=== PATIENT | male | born 1955 | race Caucasian/White ===

== ENCOUNTER 2016-11-21 09:51 | Outpatient (CLI) | payer BC ==
[2016-11-21 10:43] LABS: Hemoglobin A1c 7.6 % (4.0-6.0)
[2016-11-21 10:58] LABS: ALT (SGPT) 32 U/L (0-55); AST (SGOT) 18 U/L (5-34); Albumin 4.4 g/dL (3.4-4.8); Alkaline Phosphatase 46 U/L (40-150); Anion Gap 18 mmol/L (10-20); BUN (Urea Nitrogen) 9 mg/dL (8.4-25.7); Bilirubin, Direct 0.2 mg/dL (0.1-0.3); Bilirubin, Total 0.4 mg/dL (0.2-1.2); Calc. Creatinine Clearance 0 mL/min (70-130); Calcium 9.7 mg/dL (7.8-10.44); Carbon Dioxide 28 mmol/L (23-31); Cardiac Risk 4.2 (Less than 4.5); Chloride 99 mmol/L (98-107); Cholesterol 199 mg/dL (< 200 Desired); Estimated GFR-MDRD Greater than 90; Glucose 199 mg/dL (80-115); HDL Cholesterol 47 mg/dL (>60 Neg Risk); LDL Cholesterol, Calculated 137 mg/dL; Potassium 4.8 mmol/L (3.5-5.1); Sodium 140 mmol/L (136-145); Triglycerides 74 mg/dL (Less than 150)
[2016-11-21 18:41] LABS: Creatinine, Urine 204.24 mg/dL (63-166)
[2016-11-21 19:04] LABS: Microalbumin Urine 1.5 mg/dL (0.5-50.0); Microalbumin/Creat Ratio 7.5 mg/g (Less than 30)
== END 2016-11-21 09:52 | disposition home or self-care (01) ==
LOC: MADLABBHPM 09:51
PROVIDERS: ATTEND Family Medicine
DX: E11.9 Type 2 diabetes mellitus without complications (principal)
CPT/HCPCS: 36415; 80048; 80061; 80076; 82043; 82570; 83036

== ENCOUNTER 2017-02-28 07:32 | Outpatient (CLI) | payer BC ==
[2017-02-28 10:06] LABS: ALT (SGPT) 33 U/L (0-55); AST (SGOT) 23 U/L (5-34); Albumin 4.4 g/dL (3.4-4.8); Alkaline Phosphatase 51 U/L (40-150); Anion Gap 18 mmol/L (10-20); BUN (Urea Nitrogen) 11 mg/dL (8.4-25.7); Bilirubin, Direct 0.1 mg/dL (0.1-0.3); Bilirubin, Total 0.3 mg/dL (0.2-1.2); Calc. Creatinine Clearance 0 mL/min (70-130); Calcium 9.5 mg/dL (7.8-10.44); Carbon Dioxide 24 mmol/L (23-31); Cardiac Risk 4.5 (Less than 4.5); Chloride 101 mmol/L (98-107); Cholesterol 177 mg/dL (< 200 Desired); Estimated GFR-MDRD 86; Glucose 152 mg/dL (80-115); HDL Cholesterol 39 mg/dL (>60 Neg Risk); LDL Cholesterol, Calculated 106 mg/dL; Potassium 4.2 mmol/L (3.5-5.1); Protein, Total 7.1 g/dL (5.8-8.1); Sodium 139 mmol/L (136-145); Triglycerides 160 mg/dL (Less than 150)
== END 2017-02-28 07:33 | disposition home or self-care (01) ==
LOC: MADLABBHPM 07:32
PROVIDERS: ATTEND Family Medicine
DX: E11.9 Type 2 diabetes mellitus without complications (principal)
CPT/HCPCS: 36415; 80048; 80061; 80076; 83036

== ENCOUNTER 2018-07-01 09:06 | Outpatient (CLI) | payer BC ==
--- NOTE | 2018-07-01 11:08 | RAD ---
CHEST TWO VIEWS: History: COPD. Comparison: None. FINDINGS: Lungs are clear. No pneumothorax or effusion. Cardiac silhouette and mediastinal contours are within normal limits. IMPRESSION: No acute abnormality. POS: [facility]
== END 2018-07-01 09:07 | disposition home or self-care (01) ==
LOC: MADRAD 09:06
PROVIDERS: ATTEND Family Medicine
DX: J44.9 Chronic obstructive pulmonary disease, unspecified (principal)
CPT/HCPCS: 71046

== ENCOUNTER 2023-02-02 08:42 | Outpatient (CLI) | payer MEDICARE, OTHER | END 2023-02-02 08:43 | disposition home or self-care (01) | LOC: MADLAB 08:42 → MADRAD 08:43 | PROVIDERS: ATTEND Internal Medicine | DX: G47.33 Obstructive sleep apnea (adult) (pediatric) (principal) | CPT/HCPCS: 71046 ==